=== PATIENT | male | born 1960 | race Caucasian/White ===

== ENCOUNTER 2018-08-08 07:41 | Day surgery (SDC) | payer OTHER ==
[~2018-08-08] VITALS: Ht 177.8 cm; Wt 98.9 kg
[2018-08-08] MEDS ORDERED: fentaNYL 0.05 MG/ML VIAL ONE (09:40)
[2018-08-08] MEDS ORDERED: MIDAZOLAM 2 MG/2 ML VIAL ONE (09:40)
[2018-08-08] MEDS: MIDAZOLAM 2 MG/2 ML VIAL IVP ONE (10:01)
[2018-08-08] MEDS: fentaNYL 0.05 MG/ML VIAL IVP ONE (10:02)
[2018-08-08] MEDS: LIDOCAINE 2% 100 MG/5 ML UJET TP ONE (10:13)
== END 2018-08-08 11:15 | disposition home or self-care (01) ==
LOC: MDS 07:41 → MMU 07:43 → MDS 11:15
PROVIDERS: ATTEND Internal Medicine Gastroenterology
DX: D12.7 Benign neoplasm of rectosigmoid junction (principal); D12.5 Benign neoplasm of sigmoid colon; K29.41 Chronic atrophic gastritis with bleeding; I10 Essential (primary) hypertension; E11.9 Type 2 diabetes mellitus without complications; F17.210 Nicotine dependence, cigarettes, uncomplicated; E66.9 Obesity, unspecified; Z68.31 Body mass index [BMI] 31.0-31.9, adult; Z72.89 Other problems related to lifestyle; Z79.899 Other long term (current) drug therapy; Z98.890 Other specified postprocedural states
CPT/HCPCS: 36415; 43239; 45385; 82948; 86677; J2250; J3010

== ENCOUNTER 2024-07-18 11:30 | Inpatient (IN) | payer MEDICAID, OTHER ==
[~2024-07-18] VITALS: Ht 175.3 cm; Wt 88.0 kg
[2024-07-18 11:32] VITALS: BP 109/74; PULSE 101; RESP 22; TEMP 97.3; O2SAT 99
[2024-07-18 12:00] VITALS: O2SAT 99
[2024-07-18] MEDS: LORazepam 2 MG/ML VIAL IVP ONE (12:18)
[2024-07-18] MEDS: KETOROLAC 30 MG/ML VIAL IVP ONE (12:19)
[2024-07-18 12:20] LABS: BASOPHILS % (AUTO) 0.2 % (0.0-2.0); EOSINOPHILS # (AUTO) 0.1 K/uL (0-0.4); EOSINOPHILS % (AUTO) 1.1 % (0.0-4.0); HEMATOCRIT 39.7 % (36-52); HEMOGLOBIN 13.4 g/dL (12.0-18.0); LYMPHOCYTES # (AUTO) 1.6 K/uL (2.0-11.5); MEAN CORPUSCULAR HEMOGLOBIN 29 pg (27-31); MEAN CORPUSCULAR HGB CONC 34 g/dL (33-37); MEAN CORPUSCULAR VOLUME 84.7 fL (80-94); MONOCYTES # (AUTO) 0.6 K/uL (0.8-1.0); MONOCYTES % (AUTO) 7.7 % (1.7-9.3); NEUTROPHILS # (AUTO) 5.5 K/uL (1.8-7.7); PLATELET COUNT (AUTO) 145 K/uL (140-450); RED BLOOD CELL COUNT(AUTO) 4.68 MIL/uL (4.20-6.10); WHITE BLOOD COUNT (AUTO) 7.9 K/uL (4.8-10.8)
[2024-07-18 12:32] LABS: ANION GAP 13.7 (8-16); CALCIUM 9.3 mg/dL (8.5-10.1); CARBON DIOXIDE 24.6 mmol/L (21-32); CREATININE 1.7 mg/dL (0.6-1.3); POTASSIUM 4.3 mmol/L (3.5-5.1)
[2024-07-18 12:34] LABS: INR 1.05 (0.8-1.2); PARTIAL THROMBOPLASTIN TIME 25.4 secs (22-35.6)
[2024-07-18 12:40] LABS: ALANINE AMINOTRANSFERASE 35 U/L (12-78); ALBUMIN 3.5 g/dL (3.4-5.0); ALKALINE PHOSPHATASE 99 U/L (50-136); ASPARTATE AMINOTRANSFERASE 26 U/L (15-37); BILIRUBIN,DIRECT 0.2 mg/dL (0.0-0.3); TOTAL BILIRUBIN 0.6 mg/dL (0.0-1.0); TOTAL PROTEIN, SERUM 7.9 g/dL (6.4-8.2)
[2024-07-18 12:49] LABS: APPEARANCE,URINE CLEAR (CLEAR); BILIRUBIN,URINE NEGATIVE (NEGATIVE); BLOOD, URINE NEGATIVE (NEGATIVE); COLOR,URINE YELLOW (YELLOW); LEUKOCYTE ESTERASE ,URINE TRACE (NEGATIVE); NITRITE, URINE NEGATIVE (NEGATIVE); PROTEIN,URINE 1+ (NEGATIVE); UGLUCOSE NEGATIVE (NEGATIVE); UROBILINOGEN,URINE 0.2 EU/dL (0.2 - 1)
[2024-07-18 13:43] LABS: BACTERIA,URINE OCCASSIONAL /HPF (None Seen); RBC,URINE 0-5 /HPF (0-5); SQUAMOUS EPITHELIAL CELL,UR 0-3 (FEW) /LPF (0-3 (FEW)); WBC,URINE 0-5 /HPF (0-5)
[2024-07-18] MEDS ORDERED: POTASSIUM CHLORIDE 10 MEQ TABER PO PRN (14:05)
[2024-07-18] MEDS ORDERED: MAGNESIUM OXIDE 400 MG TAB PO PRN (14:05)
[2024-07-18] MEDS ORDERED: ONDANSETRON 4 MG/2 ML VIAL IV PRN (14:05)
[2024-07-18] MEDS ORDERED: DOCUSATE SODIUM 100 MG GELCAP PO PRN (14:05)
[2024-07-18 14:12] VITALS: O2SAT 99
[2024-07-18 15:06] LABS: INR 1.04 (0.8-1.2); PARTIAL THROMBOPLASTIN TIME 25.8 secs (22-35.6); PROTHROMBIN TIME 10.9 secs (10.8-13.4)
[2024-07-18 15:11] LABS: LACTIC ACID 0.7 mmol/L (0.4-2.0)
[2024-07-18 15:14] LABS: CHOL/HDL RATIO 3.1 (1-4.5); MAGNESIUM 2.2 mg/dL (1.8-2.4); PHOSPHORUS 3.6 mg/dL (2.5-4.9); THYROID STIMULATING HORMONE 0.68 uIU/mL (0.34-3.74)
[2024-07-18] MEDS ORDERED: LEVO-481 PO (15:29)
[2024-07-18] MEDS ORDERED: TAMS0.4C97 PO (15:29)
[2024-07-18] MEDS ORDERED: DULO20CA PO (15:29)
[2024-07-18] MEDS ORDERED: CLOP75TA55 PO (15:29)
[2024-07-18] MEDS ORDERED: GLIP10TA12 PO (15:29)
[2024-07-18] MEDS: LORazepam 2 MG/ML VIAL IVP STA (16:37)
[2024-07-18 18:16] VITALS: O2SAT 99
[2024-07-18 20:05] VITALS: PULSE 73; RESP 19; O2SAT 99
[2024-07-18 20:16] VITALS: PULSE 79
[2024-07-18] MEDS ORDERED: DEXTROSE 50% 50 ML SYR IVP PRN (20:50)
[2024-07-18] MEDS: BLOOD GLUCOSE MONITORING 1 DEV DEV FS SCH (22:00)
[2024-07-18] MEDS: NACL 0.9% 1,000 ML IV ONE (22:35)
[2024-07-18] MEDS: HYDROcodone/APAP 7.5/325 MG 1 TAB PO PRN (23:18)
[2024-07-19] VITALS: BP 132/73; PULSE 58; PULSE 73; RESP 19; TEMP 97.5; O2SAT 99
[2024-07-19 04:00] VITALS: BP 150/89; PULSE 66; PULSE 73; RESP 19; TEMP 97.5; O2SAT 99
[2024-07-19 06:04] LABS: BASOPHILS % (AUTO) 0.2 % (0.0-2.0); EOSINOPHILS # (AUTO) 0.2 K/uL (0-0.4); EOSINOPHILS % (AUTO) 3.4 % (0.0-4.0); HEMATOCRIT 37.3 % (36-52); HEMOGLOBIN 12.7 g/dL (12.0-18.0); LYMPHOCYTES # (AUTO) 1.9 K/uL (2.0-11.5); LYMPHOCYTES % (AUTO) 29.4 % (20.5-51.1); MEAN CORPUSCULAR HEMOGLOBIN 29 pg (27-31); MEAN CORPUSCULAR HGB CONC 34 g/dL (33-37); MONOCYTES # (AUTO) 0.5 K/uL (0.8-1.0); MONOCYTES % (AUTO) 8.2 % (1.7-9.3); NEUTROPHILS # (AUTO) 3.8 K/uL (1.8-7.7); NEUTROPHILS % (AUTO) 58.8 % (42.2-75.2); PLATELET COUNT (AUTO) 102 K/uL (140-450); RED BLOOD CELL COUNT(AUTO) 4.39 MIL/uL (4.20-6.10); RED CELL DISTRIBUTION WIDTH 14.7 % (11.6-13.7); WHITE BLOOD COUNT (AUTO) 6.5 K/uL (4.8-10.8)
[2024-07-19 06:37] LABS: AMPHETAMINE, URINE NEGATIVE ng/ml (NEG <=1000); BARBITURATE, URINE NEGATIVE ng/ml (NEG <=200); BENZODIAZEPINE, URINE POSITIVE ng/mL (NEG <=200); CANNABINOID, URINE NEGATIVE ng/mL (NEG <=50); COCAINE, URINE NEGATIVE ng/mL (NEG <=300); OPIATE, URINE POSITIVE ng/mL (NEG <=2000); PHENCYCLIDINE SCREEN,URINE NEGATIVE ng/mL (NEG <=25)
[2024-07-19 08:00] VITALS: BP 179/103; PULSE 59; PULSE 78; PULSE 87; RESP 18; RESP 19; TEMP 96.5; O2SAT 98
[2024-07-19 08:08] LABS: ALBUMIN 3.3 g/dL (3.4-5.0); ANION GAP 14.7 (8-16); CALCIUM 8.9 mg/dL (8.5-10.1); CARBON DIOXIDE 24.4 mmol/L (21-32); CREATININE 1.6 mg/dL (0.6-1.3); MAGNESIUM 2.2 mg/dL (1.8-2.4); PHOSPHORUS 3.9 mg/dL (2.5-4.9); POTASSIUM 4.1 mmol/L (3.5-5.1); TOTAL BILIRUBIN 0.5 mg/dL (0.0-1.0); TOTAL PROTEIN, SERUM 7.3 g/dL (6.4-8.2)
[2024-07-19] MEDS: TAMSULOSIN 0.4 MG CAP PO SCH (08:30)
[2024-07-19] MEDS: NACL 0.9% 1,000 ML IV SCH (08:50)
[2024-07-19] MEDS: DULoxetine 30 MG CAPDR PO SCH (09:00)
[2024-07-19] MEDS: amLODIPine 5 MG TAB PO SCH (09:00)
[2024-07-19 12:00] VITALS: BP 138/87; PULSE 69; PULSE 71; RESP 18; TEMP 97; O2SAT 96
[2024-07-19] MEDS: HYDROXYZINE HYDROCHLORIDE 25 MG TAB PO PRN (12:18)
[2024-07-19] MEDS: INSULIN LISPRO SLIDING SCALE 100 UNITS/ML VIAL SUBQ PRN (12:47)
[2024-07-19] MEDS ORDERED: THERAHONEY GEL 42.5 GM TP PRN (15:45)
[2024-07-19 16:00] VITALS: BP 157/94; PULSE 69; PULSE 78; RESP 18; TEMP 97.3; O2SAT 99
[2024-07-19] MEDS: ACETAMINOPHEN 325 MG TAB PO PRN (16:46)
[2024-07-19 20:00] VITALS: BP 144/85; PULSE 63; PULSE 73; PULSE 87; RESP 18; TEMP 96.8; O2SAT 96
[2024-07-19] MEDS: ZOLPIDEM 5 MG TAB PO PRN (20:23)
[2024-07-20] VITALS (7 sets, daily range): BP systolic 130–169; BP diastolic 84–92; PULSE 59–89; RESP 18–20; TEMP 97.2–98.3; O2SAT 96–99
[2024-07-20 05:37] LABS: BASOPHILS % (AUTO) 0.2 % (0.0-2.0); EOSINOPHILS # (AUTO) 0.2 K/uL (0-0.4); EOSINOPHILS % (AUTO) 3.2 % (0.0-4.0); HEMATOCRIT 37.8 % (36-52); HEMOGLOBIN 12.5 g/dL (12.0-18.0); LYMPHOCYTES # (AUTO) 1.9 K/uL (2.0-11.5); LYMPHOCYTES % (AUTO) 27.6 % (20.5-51.1); MEAN CORPUSCULAR HEMOGLOBIN 28 pg (27-31); MEAN CORPUSCULAR HGB CONC 33 g/dL (33-37); MEAN CORPUSCULAR VOLUME 84.9 fL (80-94); MONOCYTES # (AUTO) 0.5 K/uL (0.8-1.0); MONOCYTES % (AUTO) 7.9 % (1.7-9.3); NEUTROPHILS # (AUTO) 4.1 K/uL (1.8-7.7); NEUTROPHILS % (AUTO) 61.1 % (42.2-75.2); PLATELET COUNT (AUTO) 119 K/uL (140-450); RED BLOOD CELL COUNT(AUTO) 4.45 MIL/uL (4.20-6.10); WHITE BLOOD COUNT (AUTO) 6.8 K/uL (4.8-10.8)
[2024-07-20 06:04] LABS: ALBUMIN 3.3 g/dL (3.4-5.0); ANION GAP 11.6 (8-16); CARBON DIOXIDE 25.4 mmol/L (21-32); CREATININE 1.3 mg/dL (0.6-1.3); MAGNESIUM 2.4 mg/dL (1.8-2.4); PHOSPHORUS 3.6 mg/dL (2.5-4.9); TOTAL BILIRUBIN 0.5 mg/dL (0.0-1.0); TOTAL PROTEIN, SERUM 6.8 g/dL (6.4-8.2)
[2024-07-20] MEDS ORDERED: DULO30EC PO (12:19)
[2024-07-20] MEDS ORDERED: ATA25 PO (12:19)
[2024-07-20] MEDS ORDERED: AMLO-3 PO (12:19)
[2024-07-20] MEDS: THERAHONEY GEL 42.5 GM TP SCH (13:00)
[2024-07-20] MEDS ORDERED: AMLO5TAB PO (17:42)
[2024-07-20] MEDS ORDERED: ZOLP5TAB1 PO (17:42)
[2024-07-20] MEDS ORDERED: TRAZ-343 PO (17:44)
[2024-07-20] MEDS ORDERED: hydrALAZINE 10 MG TAB PO PRN (22:05)
[2024-07-21] VITALS: BP 146/84; PULSE 71; PULSE 83; RESP 20; TEMP 98; O2SAT 98
[2024-07-21 04:00] VITALS: BP 148/75; PULSE 67; PULSE 68; RESP 19; TEMP 98.4; O2SAT 96
== END 2024-07-21 17:32 | disposition home or self-care (01) | DRG 469 ==
LOC: MED 11:30 → MTU 14:06 → MMU 14:06
PROVIDERS: ADMIT Student in an Organized Health Care Education/Training Program; ATTEND Student in an Organized Health Care Education/Training Program
DX: N17.9 Acute kidney failure, unspecified (principal); R65.10 Systemic inflammatory response syndrome (SIRS) of non-infectious origin without acute organ dysfunction; E44.1 Mild protein-calorie malnutrition; E11.22 Type 2 diabetes mellitus with diabetic chronic kidney disease; E87.1 Hypo-osmolality and hyponatremia; R07.89 Other chest pain; E78.5 Hyperlipidemia, unspecified; N40.0 Benign prostatic hyperplasia without lower urinary tract symptoms; I12.9 Hypertensive chronic kidney disease with stage 1 through stage 4 chronic kidney disease, or unspecified chronic kidney disease; N18.9 Chronic kidney disease, unspecified; F41.9 Anxiety disorder, unspecified; Z82.49 Family history of ischemic heart disease and other diseases of the circulatory system; Z83.3 Family history of diabetes mellitus; Z89.429 Acquired absence of other toe(s), unspecified side; Z79.899 Other long term (current) drug therapy; Z68.28 Body mass index [BMI] 28.0-28.9, adult
CPT/HCPCS: 36415; 71045; 76770; 78580; 80048; 80053; 80076; 80305; 81001; 82948; 83036; 83605; 83690; 83735; 83880; 84100; 84443; 84484; 85025; 85379; 85610; 85730; 87081; 87086; 87186; 93005; 93970; 96374; 96375; 96376; 97110; 97116; 97163-GP; 97530; 99285; A9540; J1815; J1885; J2060; Q0092